=== PATIENT | male | born 1950 | race Caucasian/White ===

== ENCOUNTER 2020-09-17 14:01 | Outpatient (CLI) | payer MEDICARE, SELFPAY ==
--- NOTE | ~2020-09-17 | XR_ITS ---
XR lumbar spine 2-3V DATE: 09/17/2020 14:22 INDICATION: Chronic low back pain, generalized weakness. TECHNIQUE: AP, lateral, coned lateral lumbosacral views COMPARISON: None FINDINGS: Status post posterior surgical fusion at L4-5. Diffuse idiopathic skeletal hyperostosis at the thoracolumbar spine. Degenerative disc disease throughout the lumbar spine. There is mild dextroscoliosis. No fracture or bone destruction. The lumbar pedicles are intact. No spondylolisthesis. The sacroiliac joints are unremarkable. IMPRESSION: Diffuse idiopathic skeletal hyperostosis Degenerative disc disease of lumbar spine Status post L4-5 posterior surgical fusion Reviewed, dictated and finalized at location A.
== END 2020-09-17 14:02 | disposition home or self-care (01) ==
LOC: CHSIMG 14:05
PROVIDERS: PCP Internal Medicine; Visit Provider Internal Medicine
DX: M54.9 Dorsalgia, unspecified (principal)
CPT/HCPCS: 72100

== ENCOUNTER 2020-09-19 13:06 | Outpatient (RCR) | payer MEDICARE, SELFPAY ==
--- NOTE | 2020-09-19 15:10 | PTOPEVAL ---
Thank you for referring Sree Navarrete to [facility].? The patient is scheduled to be seen for therapy? ____x/week for ___ weeks. Please review, sign, date and return this plan of care KATHERINE. I agree with and certify that the following plan of care is medically necessary. Referring Physician Date Admitting Provider: Attending Provider: Robbie Davis MD Referring Provider: *PT Outpatient Evaluation Start: 09/19/20 08:29 Freq: Status: Active Protocol: Document 09/19/20 13:01 ACR (Rec: 09/19/20 15:10 ACR [id number]) Therapy Assessment Status Assessment Status Assessment Status Evaluation Evaluation Information Problem Diagnosis Low back pain Onset 09/04/20 Subjective Information Patient states that when he Query Text:As Reported By Patient/ was out in the [employer] for 5 days and was doing fine, but went to put his socks on and felt a shock in his back. He then sat in his car for [address] home and then he could not walk for 2 days. He went to the MD and got a steriod shot then was put on a steriod pack and didn't feel much better. He is now on his second steriod pack. He states he does not have any radicular pain. The patient states he is very active with hunting, fishing, travelling. Patient states he is having difficulty walking/standing for prolonged periods of time, steps (marking time on the stairs), leaning forward to clean himself, getting in and out of the car, and the pain wakes him up at night. He also has difficulty lifting objects. He states the pain is predominantly on the L side. He states he is icing ang laying on his back which relieves the pain. 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
--- NOTE | 2020-10-19 16:55 | PTOPEVAL ---
Thank you for referring Sree Navarrete to [facility].? The patient is scheduled to be seen for therapy? ____x/week for ___ weeks. Please review, sign, date and return this plan of care KATHERINE. I agree with and certify that the following plan of care is medically necessary. Referring Physician Date Admitting Provider: Attending Provider: Robbie Davis MD Referring Provider: *PT Outpatient Evaluation Start: 09/19/20 08:29 Freq: Status: Active Protocol: Document 10/19/20 16:24 ACR (Rec: 10/19/20 16:54 ACR [id number]) Therapy Assessment Status Assessment Status Assessment Status Discharge Evaluation Information Problem Diagnosis low back pain Onset 09/04/20 Subjective Information Patient states that he is Query Text:As Reported By Patient/ feeling great since beginning Family therapy. He states that stairs have become very easy, he is able to stand for long periods of time, he can lift objects, but is cautious about what he lifts. He states that he is able to get in and out of the car with little to no pain. He performs his exercises 2 times a day and states that he never misses the morning stretches because they help him start his day. Pain Assessment Timing of Pain Assessment Timing of Pain Assessment Assessment Pain Scale Pain Scale Used Numeric (1 - 10) Self Report Pain Assessment Lower Back Reported Pain Level 1 Greatest Pain Intensity 3 Pain Score Pain Score 1: Self Report Interventions Used Interventions Used By Clinicians Activity or ADL's,Electrical Stimulation,Exercise,Heat Cervical and Lumbar ROM Lumbar ROM Lumbar ROM 75% of Normal Lower Extremity Muscle Strength Testing General Lower Extremity Strength Gross Lower Extremity Strength Sahrman level: 1 B Hip Strength Bilateral Hip Flexion Strength 5 Normal Muscle Length Testing Muscle Length Testing Piriformis w/Hip Flexion <90 Degrees (R) Mild Tightness,(L) Mild Tightness Left Hamstring Length 30 Query Text:(90 - 90 Position) Right Hamstring Length 20 Query Text:(90 - 90 Position) General Exercise General Exercises Exercise Description - hamstring stretch x 5 Query Text:Record Sets, Reps, minutes B Resistance, and Position - piriformis stretch x 5 minutes
== END 2020-10-19 17:01 | disposition home or self-care (01) ==
LOC: CHSPT 13:06
PROVIDERS: PCP Internal Medicine; Visit Provider Internal Medicine
DX: M54.5 Low back pain (principal)
CPT/HCPCS: 97014; 97110; 97161; G0283

== ENCOUNTER 2021-06-30 16:07 | Emergency (ER) | payer MEDICARE, SELFPAY ==
--- NOTE | 2021-06-30 16:20 | ED.WOUNDLAC ---
HPI - Wound/Laceration General Chief Complaint: Wound/Laceration Stated Complaint: cut left hand Time Seen by Provider: 06/30/21 16:20 Source: patient Mode of arrival: ambulatory Limitations: no limitations History of Present Illness HPI narrative: 71-year-old man comes in today complaining of laceration of his left thumb. Patient states that he was cutting carpet with a razor knife and slipped cutting his thumb. He denies any numbness. He takes a blood thinner. He is unsure when he had his last tetanus shot. Onset (ago): hour(s) (1) Extremity Location: Left: hand (thumb) Place: home Context: accidental Associated symptoms: pain Treatments prior to arrival: bandage Related Data Home Medications Medication Instructions Recorded Confirmed celecoxib 200 mg PO DAILY 06/30/21 06/30/21 finasteride 5 mg PO DAILY 06/30/21 06/30/21 flecainide 100 mg PO Q12H 06/30/21 06/30/21 multivitamin 1 tablet PO DAILY 06/30/21 06/30/21 pantoprazole 40 mg PO QAM 06/30/21 06/30/21 rivaroxaban [Xarelto] 20 mg PO DAILY 06/30/21 06/30/21 simvastatin 10 mg PO DAILY 06/30/21 06/30/21 telmisartan 40 mg PO DAILY 06/30/21 06/30/21 terazosin 5 mg PO DAILY 06/30/21 06/30/21 Allergies Allergy/AdvReac Type Severity Reaction Status Date / Time No Known Allergies Allergy Unverified 06/30/21 16:20 Review of Systems Review of Systems: All systems reviewed & are unremarkable except as noted in HPI and below Musculoskeletal: Musculoskeletal: Denies arthralgias and Denies joint swelling Integumentary/Breasts: Skin/Breast: Denies pruritus, Denies erythema and Denies rash Hematologic/Lymphatic: Hematologic/Lymphatic: Reports easy bleeding and Reports easy bruising Allergic/Immunologic: Allergic/Immunologic: Denies lip swelling and Denies throat swelling PMFSH Past Medical History Medical History Arrhythmia Dyslipidemia Hypertension Surgical History Surgical History H/O cardiac catheterization H/O rotator cuff surgery History of colon resection Hx of knee surgery Previous back surgery Family History Family History (Updated 01/07/11 @ 15:51 by DOCTOR UNKNOWN) Other Cerebrovascular accident Family history of cardiovascular disease Hypertension Social History Social History (Updated 06/30/21 @ 17:04 by Christopher Colmenares MD) Alcohol intake: current Substance use type: does not use Living arrangements: with family Exam Const: General: healthy appearing and alert Orientation/consciousness: patient oriented x3 Limitations: no limitations Other: mild acute distress Skin: General skin exam: normal color, no jaundice and no pallor Rashes: no rashes Other: 3 cm laceration on the radial aspect of the left thumb distal to the IP. Nail bed is intact Neuro: General: patient oriented x3, moves all extremities, no focal motor deficits and CN's II-XI intact bilaterally Speech: normal speech Gait exam (Neuro): Normal gait present Course Vital Signs Vital signs: Vital Signs Temperature 36.7 C 06/30/21 16:33 Pulse Rate 72 06/30/21 16:33 Respiratory Rate 20 06/30/21 16:33 Blood Pressure 131/93 H 06/30/21 16:33 Pulse Oximetry 95 06/30/21 16:33 Temperature 36.7 C 06/30/21 16:33 Pulse Rate 72 06/30/21 16:33 Respiratory Rate 20 06/30/21 16:33 Blood Pressure 131/93 H 06/30/21 16:33 Pulse Oximetry 95 06/30/21 16:33 Procedures Laceration Laceration 1: Date: 06/30/21 Time: 16:40 Site: hand Side (If applicable): left Size (cm): 3 Description: linear Depth: simple, single layer Amount of anesthesia used (mL): 3 Pre-repair: wound explored and irrigated extensively ====== Skin Level ====== Skin layer closed with: nylon and steri strips (4) Size (cm): 5-0 Number of sutures: 7 Technique: si
[2021-06-30 16:33] VITALS: BP 131/93; PULSE 72; RESP 20; TEMP 36.7; O2SAT 95
[2021-06-30 17:18] VITALS: BP 114/98; PULSE 82; RESP 20; TEMP 36.8; O2SAT 98
== END 2021-06-30 17:19 | disposition home or self-care (01) ==
PROVIDERS: Emergency Provider Emergency Medicine; PCP Internal Medicine
DX: S61.012A Laceration without foreign body of left thumb without damage to nail, initial encounter (principal); W26.0XXA Contact with knife, initial encounter
CPT/HCPCS: 12002; 99283

== ENCOUNTER 2021-11-20 08:07 | Outpatient (CLI) | payer MEDICARE, SELFPAY ==
[2021-11-20 09:17] LABS: SARS-CoV-2 RNA PCR Negative (Negative)
== END 2021-11-20 08:08 | disposition home or self-care (01) ==
LOC: CHSLAB 08:08
PROVIDERS: PCP Internal Medicine; Visit Provider Internal Medicine
DX: Z20.822 Contact with and (suspected) exposure to COVID-19 (principal)
CPT/HCPCS: C9803; U0003; U0005

== ENCOUNTER 2022-06-12 00:28 | Day surgery (SDC) | payer MEDICARE, SELFPAY ==
[2022-06-03 15:41] VITALS: BMI 41.3
[2022-06-12 09:10] VITALS: BP 159/65; PULSE 50; RESP 19; TEMP 36.1; O2SAT 97
[2022-06-12] MEDS: LACTATED RINGERS 1,000 ML 150 ML IV CONT (09:22)
--- NOTE | 2022-06-12 09:37 | PM.HPGS ---
History of Present Illness History of Present Illness Consent: Risks, benefits, and alternatives have been discussed and questions answered. Patient agrees to proceed with procedure. Chief complaint: Hx of colon polyps Narrative: Sree Navarrete is a 72 year old male Presents for colonoscopy. Patient has a history of colon polyps in the past. When he was younger he required surgical resection because a large polyps. 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 Patient returns today for follow-up examination. Patient's current weight appetite and bowel movements are normal. He denies abdominal pain. He has had no bleeding. Family history is noncontributory. Review of Systems Review of Systems: Review of systems noncontributory. [facility] Past Medical History Medical History Arrhythmia Dyslipidemia Hypertension Surgical History Surgical History H/O cardiac catheterization H/O rotator cuff surgery History of colon resection Hx of knee surgery Previous back surgery Family History Family History (Updated 01/07/11 @ 15:51 by DOCTOR UNKNOWN) Other Cerebrovascular accident Family history of cardiovascular disease Hypertension Social History Social History (Updated 06/30/21 @ 17:04 by Christopher Colmenares MD) Smoking packs per day: 1.5 Smoking cigarettes per day: 30.0 Years smoked: 15 Smoking pack-years: 22.50 Smoking status: Former smoker Tobacco type: cigarettes Alcohol intake: current Drinks per week: 2 Substance use: never Substance use type: does not use Living arrangements: with family Spiritual care concerns: No Meds Home Medications and Allergies Home Medications Medication Instructions Recorded Confirmed Type celecoxib 200 mg capsule 200 mg PO DAILY 06/30/21 06/03/22 History finasteride 5 mg tablet 5 mg PO DAILY 06/30/21 06/03/22 History flecainide 100 mg tablet 100 mg PO Q12H 06/30/21 06/03/22 History multivitamin 1 tablet PO DAILY 06/30/21 06/03/22 History pantoprazole 40 mg tablet,delayed 40 mg PO QAM 06/30/21 06/03/22 History release rivaroxaban 20 mg tablet (Xarelto) 20 mg PO DAILY 06/30/21 06/03/22 History simvastatin 10 mg tablet 10 mg PO DAILY 06/30/21 06/03/22 History telmisartan 40 mg tablet 40 mg PO DAILY 06/30/21 06/03/22 History terazosin 5 mg capsule 5 mg PO DAILY 06/30/21 06/03/22 History sodium,potassium,mag sulfates 17.5 See Rx Instructions PO .COMPLEX 05/01/22 06/03/22 Rx gram-3.13 gram-1.6 gram oral soln #354 mL (Suprep Bowel Prep Kit) ferrous gluconate 324 mg (37.5 mg 324 mg PO BID 06/03/22 06/03/22 History iron) tablet metoprolol succinate 25 mg 20 mg PO DAILY 06/03/22 06/03/22 History tablet,extended release 24 hr Allergies Allergy/AdvReac Type Severity Reaction Status Date / Time No Known Allergies Allergy Unverified 06/12/22 09:08 Vital Signs Vital Signs - 24 hr 06/12/22 09:10 Temperature 96.9 F L Pulse Rate 50 L Respiratory Rate 19 Blood Pressure 159/65 H Pulse Oximetry 97 Oxygen Delivery Room Air Exam Narrative: Physical exam reveals patient to be alert. Vital signs stable. HEENT exam is unremarkable. Patient is anicteric. Lungs are clear to auscultation and percussion. Heart is without murmur or extra sounds. Abdomen bowel sounds are present soft nontender with no organomegaly. Digital external rectal exam is normal. Assessment and Plan Assessment and plan (1) History of colon polyps: Code(s): Z86.010 - Personal history of colonic polyps Status: Acute Assessment and Plan: Patient has a history of colon polyps. Most recently 2014. He has a prior colon resection while he was in his 30s because of colon polyps as well. Plan for surveillance colonoscopy now and at least at every 5 year intervals in the future. Further dameon
--- NOTE | 2022-06-12 09:48 | WPDANESEPPF ---
Anes - Initial Pre Proc Eval Procedure: Operation Date: 06/12/22 10:30 Proposed Procedures p Screening Colonoscopy - Sree Velásquez MD Date/Time: 06/12/22 09:48 Surgeon: Sree Velásquez MD Pre Op Diagnosis: Hx of colon polyps Patient Data Age: 72 Gender: M Height: 1.8 m Weight: 134.1 kg Last Vital Signs Temp 96.9 F L 06/12/22 09:10 Pulse 50 L 06/12/22 09:10 Resp 19 06/12/22 09:10 BP 159/65 H 06/12/22 09:10 Pulse Ox 97 06/12/22 09:10 O2 Del Method Room Air 06/12/22 09:10 Allergies Allergy/AdvReac Type Severity Reaction Status Date / Time No Known Allergies Allergy Unverified 06/12/22 09:08 Home Medications Medication Instructions Recorded Confirmed Type celecoxib 200 mg capsule 200 mg PO DAILY 06/30/21 06/03/22 History finasteride 5 mg tablet 5 mg PO DAILY 06/30/21 06/03/22 History flecainide 100 mg tablet 100 mg PO Q12H 06/30/21 06/03/22 History multivitamin 1 tablet PO DAILY 06/30/21 06/03/22 History pantoprazole 40 mg tablet,delayed 40 mg PO QAM 06/30/21 06/03/22 History release rivaroxaban 20 mg tablet (Xarelto) 20 mg PO DAILY 06/30/21 06/03/22 History simvastatin 10 mg tablet 10 mg PO DAILY 06/30/21 06/03/22 History telmisartan 40 mg tablet 40 mg PO DAILY 06/30/21 06/03/22 History terazosin 5 mg capsule 5 mg PO DAILY 06/30/21 06/03/22 History sodium,potassium,mag sulfates 17.5 See Rx Instructions PO .COMPLEX 05/01/22 06/03/22 Rx gram-3.13 gram-1.6 gram oral soln #354 mL (Suprep Bowel Prep Kit) ferrous gluconate 324 mg (37.5 mg 324 mg PO BID 06/03/22 06/03/22 History iron) tablet metoprolol succinate 25 mg 20 mg PO DAILY 06/03/22 06/03/22 History tablet,extended release 24 hr Patient hx anesthesia problems: none Family hx anesthesia problems: none Results Review: All pre-operative results and documents have been reviewed as part of the pre-operative evaluation. PMFSH Past Medical History Medical History Arrhythmia Dyslipidemia Hypertension Surgical History Surgical History H/O cardiac catheterization H/O rotator cuff surgery History of colon resection Hx of knee surgery Previous back surgery Family History Family History (Updated 01/07/11 @ 15:51 by DOCTOR UNKNOWN) Other Cerebrovascular accident Family history of cardiovascular disease Hypertension Social History Social History (Updated 06/30/21 @ 17:04 by Christopher Colmenares MD) Smoking packs per day: 1.5 Smoking cigarettes per day: 30.0 Years smoked: 15 Smoking pack-years: 22.50 Smoking status: Former smoker Tobacco type: cigarettes Alcohol intake: current Drinks per week: 2 Substance use: never Substance use type: does not use Living arrangements: with family Spiritual care concerns: No Anes - Eval Final PreProcedure Day of Procedure 06/12/22 09:48 Patient weight: morbidly obese Heart: regular rate and rhythm Lungs: clear to auscultation Airway: Mallampati scale class III Neurological: alert and oriented Last oral intake: >/= 8 hours ASA classification: III Emergent: no Anesthetic plan: proceed Anesthesia type and monitoring: general GIVS and standard monitoring Results Review: All pre-operative results and documents have been reviewed as part of the pre-operative evaluation. Informed Consent: The patient's anesthetic plan and its attendant risks and benefits were discussed with the patient/family/POA. Questions were solicited and answers provided to the satisfaction of the patient/family/POA.
[2022-06-12] MEDS: SIMETHICONE ORAL SUSPENSION 20 MG/0.3 ML 30 ML BOTTLE 0.6 ML IRRIGATION (10:39)
[2022-06-12 10:52] VITALS: BP 133/48; PULSE 48; RESP 21; O2SAT 97
[2022-06-12 11:02] VITALS: BP 142/71; PULSE 45; RESP 19; O2SAT 97
[2022-06-12 11:12] VITALS: BP 145/60; PULSE 45; RESP 20; O2SAT 96
== END 2022-06-12 11:18 | disposition home or self-care (01) ==
PROVIDERS: PCP Internal Medicine; Visit Provider Internal Medicine Gastroenterology
PROC: 0DJD8ZZ Inspection of Lower Intestinal Tract, Via Natural or Artificial Opening Endoscopic (ICD-10-PCS; CPT 45378; principal; 2022-06-12 10:30)
DX: Z12.11 Encounter for screening for malignant neoplasm of colon (principal); D12.5 Benign neoplasm of sigmoid colon; K57.30 Diverticulosis of large intestine without perforation or abscess without bleeding; E78.5 Hyperlipidemia, unspecified; I10 Essential (primary) hypertension; Z90.49 Acquired absence of other specified parts of digestive tract; Z87.891 Personal history of nicotine dependence
CPT/HCPCS: 45385; 88305; J2704; J7120

== ENCOUNTER 2022-09-15 13:48 | Outpatient (CLI) | payer MEDICARE, SELFPAY ==
--- NOTE | ~2022-09-15 | XR_ITS ---
EXAMINATION: XR chest 2V Exam Date/Time: 09/15/2022 14:00 CDT HISTORY: COUGH,URI, X2WK Comparison: 04/25/2019. RESULT: Lines, tubes, and devices: None. Lungs and pleura: Senescent change. Streaky bibasilar opacities likely represent scar/atelectasis. Cardiomediastinal silhouette: Stable. Other: No acute osseous or upper abdominal finding. IMPRESSION: No acute cardiopulmonary process. Reviewed, dictated and finalized at location K.
== END 2022-09-15 13:49 | disposition home or self-care (01) ==
LOC: CHSIMG 13:49
PROVIDERS: PCP Internal Medicine; Visit Provider Internal Medicine
DX: R05.9 Cough, unspecified (principal)
CPT/HCPCS: 71046

== ENCOUNTER 2023-10-05 10:46 | Outpatient (CLI) | payer MEDICARE, SELFPAY ==
[2023-10-05 11:12] LABS: Basophils Absolute Auto 0.02 K/mm3 (0.00-0.10); Basophils Percent Auto 0.4 % (0.0-1.0); Eosinophils Absolute Auto 0.09 K/mm3 (0.02-0.50); Eosinophils Percent Auto 1.6 % (1.0-6.0); Hematocrit 37.9 % (37.0-46.0); Hemoglobin 12.7 g/dL (12.4-15.3); Immature Granulocyte Absolute 0.03 K/mm3 (0.00-0.00); Immature Granulocyte Percent A 0.5 % (0.0-0.0); Lymphocytes Absolute Auto 1.73 K/mm3 (1.10-4.50); Lymphocytes Percent Auto 31.4 % (18.0-42.0); Mean Corpuscular HGB Conc 33.5 g/dL (32-36); Mean Corpuscular Hemoglobin 30.8 pg (27.0-31.0); Mean Platelet Volume 9.8 fl (8.7-11.0); Monocytes Absolute Auto 0.48 K/mm3 (0.10-0.90); Monocytes Percent Auto 8.7 % (2.0-11.0); Neutrophils Absolute Auto 3.16 K/mm3 (1.70-7.20); Neutrophils Percent Auto 57.4 % (50.0-70.0); Platelet Count Result 203 K/mm3 (150-420); Red Blood Count 4.12 M/mm3 (4.70-6.10); White Blood Count 5.5 K/mm3 (4.8-10.8)
[2023-10-05 11:30] LABS: Prothrombin Time 10.8 Seconds (9.50-12.1)
[2023-10-05 11:45] LABS: Anion Gap 13 mmol/L (4-12); Blood Urea Nitrogen 14 mg/dL (7-18); Calcium 8.9 mg/dL (8.5-10.1); Carbon Dioxide 24 mmol/L (21-32); Chloride 105 mmol/L (98-108); Estimated Glomerular Filt Rate > 60; Glucose 90 mg/dL (70-99); Magnesium 1.6 mg/dL (1.8-2.4); Osmolality Calculated 294 mOsm/kg (285-295); Potassium 4.2 mmol/L (3.5-5.1); Sodium 142 mmol/L (136-145)
== END 2023-10-05 10:47 | disposition home or self-care (01) ==
PROVIDERS: PCP Internal Medicine; Visit Provider Specialist
DX: R06.09 Other forms of dyspnea (principal); R07.9 Chest pain, unspecified; I25.119 Atherosclerotic heart disease of native coronary artery with unspecified angina pectoris; R94.39 Abnormal result of other cardiovascular function study
CPT/HCPCS: 36415; 80048; 83735; 85025; 85610

== ENCOUNTER 2024-03-03 13:52 | Outpatient (CLI) | payer MEDICARE, SELFPAY ==
--- NOTE | ~2024-03-03 | XR_ITS ---
EXAMINATION: XR chest 2V 03/03/2024 14:17 INDICATION: Cough for one month PROCEDURE: 2 view chest COMPARISON: 09/15/2022 FINDINGS: The lungs are clear. The cardiomediastinal silhouette is within normal limits. There are no pleural effusions. There is no pneumothorax suspected. IMPRESSION: 1: NO ACUTE CARDIOPULMONARY DISEASE. Reviewed, dictated and finalized at location B.
[2024-03-03 14:05] LABS: Basophils Absolute Auto 0.03 K/mm3 (0.00-0.10); Basophils Percent Auto 0.5 % (0.0-1.0); Eosinophils Absolute Auto 0.09 K/mm3 (0.02-0.50); Eosinophils Percent Auto 1.4 % (1.0-6.0); Hematocrit 39.7 % (37.0-46.0); Hemoglobin 13.3 g/dL (12.4-15.3); Immature Granulocyte Absolute 0.05 K/mm3 (0.00-0.00); Immature Granulocyte Percent A 0.8 % (0.0-0.0); Lymphocytes Absolute Auto 1.86 K/mm3 (1.10-4.50); Lymphocytes Percent Auto 29.3 % (18.0-42.0); Mean Corpuscular HGB Conc 33.5 g/dL (32-36); Mean Corpuscular Hemoglobin 31.3 pg (27.0-31.0); Mean Corpuscular Volume 93.4 fL (78.0-102.0); Mean Platelet Volume 9.7 fl (8.7-11.0); Monocytes Absolute Auto 0.58 K/mm3 (0.10-0.90); Monocytes Percent Auto 9.1 % (2.0-11.0); Neutrophils Absolute Auto 3.73 K/mm3 (1.70-7.20); Neutrophils Percent Auto 58.9 % (50.0-70.0); Platelet Count Result 208 K/mm3 (150-420); Red Blood Count 4.25 M/mm3 (4.70-6.10); Red Cell Distribution Width 12.3 % (11.6-14.4); White Blood Count 6.3 K/mm3 (4.8-10.8)
[2024-03-03 15:10] LABS: Alanine Aminotransferase 34 U/L (16-63); Albumin Level 3.7 g/dL (3.4-5.0); Anion Gap 8 mmol/L (4-12); Aspartate Amino Transferase 22 U/L (15-37); Bilirubin,Total 0.4 mg/dL (0.00-1.00); Blood Urea Nitrogen 19 mg/dL (7-18); Calcium 8.6 mg/dL (8.5-10.1); Carbon Dioxide 30 mmol/L (21-32); Chloride 102 mmol/L (98-108); Estimated Glomerular Filt Rate > 60; Glucose 94 mg/dL (70-99); Osmolality Calculated 292 mOsm/kg (285-295); Potassium 4.4 mmol/L (3.5-5.1); Sodium 140 mmol/L (136-145); Total Protein 6.2 g/dL (6.4-8.2)
[2024-03-03 15:11] LABS: Alkaline Phosphatase 93 U/L (46-116)
[2024-03-03 15:12] LABS: CRP < 0.5 mg/dL (0.0-0.9)
== END 2024-03-03 13:53 | disposition home or self-care (01) ==
LOC: CHSLAB 13:54
PROVIDERS: PCP Internal Medicine; Visit Provider Internal Medicine
DX: R05.9 Cough, unspecified (principal)
CPT/HCPCS: 36415; 71046; 80053; 85025; 86140

== ENCOUNTER 2024-11-12 07:03 | Outpatient (CLI) | payer MEDICARE, SELFPAY ==
--- OUTSIDE RECORDS SUMMARY | 2024-11-12 07:10 | XMS_ITS | Encounter Summary ---
Author Organization [facility] Health Address [address] [place] [address] Care Team Providers Care Associate Dean Of Women Name Role Phone David Bergman MD Unavailable [phone] Alona Miles MD Unavailable [phone] Srinivasa Wilburn DO Unavailable [phone] Robbie Davis MD Primary Care Provider [phone] Encounter Details Date Type Department Care Team (Late st Contact Info) Description 05/01/2016 [facility] Outpatient Visit [facility] Orthopedics - Radiology [address] [address] Srinivasa Wilburn, DO [address] [place] [address] Social History Tobacco Use Types Packs/Day Years Used Date Smoking Tobacco: Former Cigarettes 2 15 0 07/06/1995 - 07/06/2010 Smokeless Tobacco: Former Chew Alcohol Use Standard Drinks/Week Comments Yes 2.5 (1 standard drink = 0.6 oz p ure alcohol) Sex and Gender Information Value Date Recorded Sex Assigned at Not on file Legal Sex Male 5:24 AM [employer] Gender Identity Not on file Sexual Orientation Not on file documented as of this encounter Functional Status * Is person deaf or have serious hearing difficulty? Answer Date of Assessment Author No 08/25/2015 9:19 AM Ele Kaba ma RN * Is person blind or have serious difficulty seeing? Answer Date of Assessment Author No 08/25/2015 9:19 AM Ele Kaba ma, RN * Does person have serious difficulty walking/climbing stairs? Answer Date of Assessment Author No 08/25/2015 9:19 AM Ele Kaba ma, RN * Does person have difficulty dressing/bathing? Answer Date of Assessment Author No 08/25/2015 9:19 AM Ele Kaba ma, RN * Does person have difficulty doing errands alone? Answer Date of Assessment Author No 08/25/2015 9:19 AM Anna Kaba RN documented as of this encounter Mental Status * Does person have difficulty concentrating/remembering/making decisions? Answer Entry Date Author No 08/25/2015 9:19 AM Ele Kaba ma, RN documented in this encounter Plan of Treatment Not on file documented as of this encounter Visit Diagnoses Not on filedocumented in this encounter Care Teams Associate Dean Of Women Relationship Specialty Start Date End Date Robbie Davis MD [address], [place] [id number] PCP - General Internal Medicine 04/07/24 [place] [address] [address] [facility] [address] [id number] Orthopedic Surgery 01/10/13 [place] [id number] [facility] [address] [id number] Orthopedic Surgery 08/21/14 [place] [id number] [address] [address] Orthopedic Surgery 01/03/16 documented as of this encounter
--- OUTSIDE RECORDS SUMMARY | 2024-11-12 07:10 | XMS_ITS | Clinical Summary ---
Author Organization [facility] Address [address] [place] [address] Care Team Providers Care District Court Justice Name Role Phone Robbie Davis MD Primary Care Provider [phone] Verena Lara ANP-BC Unavailable [phone] Torres Winter MD Unavailable [phone] Charity Banda PA-C Unavailable [phone] Carolina Herzog MD Unavailable Medications Multiple Vitamin (MULTIVITAMIN) capsule Take 1 tablet by mouth daily. 3 Active terazosin 5 MG capsule Take 1 capsule (5 mg total) by mouth nightly at bedtime. Active finasteride 5 MG tablet Take 1 tablet (5 mg total) by mouth daily. Active pantoprazole EC 40 MG tablet Take 500 mg by mouth daily. 1 tablet daily 9 Active ferrous gluconate 324 (38 FE) MG tablet Take 2 tablets (648 mg total) by mouth daily. Active rivaroxaban 20 MG Tab tablet Take 1 tablet (20 mg total) by mouth daily with supper. Take with food 90 tablet 1 0 Active celecoxib (CELEBREX) 200 MG capsule Take 1 capsule (200 mg total) by mouth daily. 4 Active simvastatin (ZOCOR) 10 MG tablet Take 1 tablet (10 mg total) by mouth nightly at bedtime. 90 tablet 3 5 Active Telmisartan-amLOD IPine 80-10 MG Tab Take 1 tablet by mouth daily. 90 tablet 3 5 Active metoprolol succinate ER (TOPROL-XL) 25 MG 24 hr tabletIndications :Paroxysmal atrial fibrillation (CMS/HCC HHS/HCC) TAKE A HALF TABLET BY MOUTH DAILY 45 tablet 1 5 Active Active Problems Problem Noted Date Diagnosed Date Mild CAD 09/08/2022 S/P ablation of atrial flutter 10/29/2021 Enlarged prostate without lo wer urinary tract symptoms (luts) 02/15/2018 Overview (02/15/2019): Overview: Enlarged prostate - (Added by TW Conv) Spondylolisthesis of lumbar region 02/25/2017 Spinal stenosis of lumbar region 08/06/2016 Pes anserinus bursitis of left knee 05/05/2016 History of total knee replacement 07/10/2015 Fatigue 03/29/2014 Hypersomnia 03/29/2014 Heart disease 01/10/2013 Osteoarthrosis involving lower leg 01/10/2013 Overview (02/15/2019): Overview: 2015 IMO Updt Overview: 2015 IMO Updt Obstructive sleep apnea PAC (premature atrial contraction) Essential (primary) hypertension Overview (08/25/2016): Overview: Hyperlipidemia Colon cancer (CMS/HCC HHS/HCC) Cardiomyopathy (CMS/HCC HHS/HCC) Atypical atrial flutter (CMS/HCC HHS/HCC) Arthritis Gout Paroxysmal atrial fibrillation (CMS/HCC HHS/HCC) Resolved Problems Problem Noted Date Diagnosed Date Resolved Date CPAP use counseling 04/04/2015 03/16/20 20 Encounter for preventive health examination 09/07/2012 03/16/2020 Encounters Date Type Department Care Team Description 10/25/2024 1:30 PM CDT [facility] [address] [place] [address] Torres Winter MD 10/25/2024 Prep [place] [address] Torres Winter MD 10/25/2024 Telephone [facility] [address] [place] [address] Torres Winter MD Schedule Procedure 10/25/2024 Travel 10/22/2024 Orders Only [facility] [address] [place] [address] Torres Winter MD 09/28/2024 Telephone [facility] [address] [place] [address] Torres Winter MD Reschedule; Returned Call 09/19/2024 Telephone [facility] [address] [place] [address] Carolina Herzog MD Reschedule 09/16/2024 Telephone [facility] [address] [place] [address] Torres Winter MD Results 09/16/2024 Telephone [facility] [address] [place] [address] Torres Winter MD Concerns; Question 09/08/2024 Telephone [facility] [address] [place] [address] Torres Winter MD Question 08/22/2024 Telephone [facility] [address] [place] [address] Carolina Herzog MD Information (BP log) from Last 3 Months Family History Medical History Relation Comments Stroke Father NE Maternal Grandfather Atrial Fibrillation S/P Pacemaker Mother Atrial fibrillation Sister Coronary artery disease Neg Hx No brenna ture coronary artery disease. Relation Status Comments Father (Age 39) cerebral hemor rhage. Maternal Grandfather (Age 65) of m yocardial infarction at age 65. Mother Alive Atrial fibrillat ion s/p pacemaker Sister Alive Social History Tobacco Use Types Packs/Day Years Used Date Smoking Tobacco: Former Smokeless Tobacco: Former Chew Quit: 08/25/2001 Tobacco Cessation:Counseling Given: Not Answered Comments:quit in 2011 - smoked off and on for 42 years, 1/2 PPD on average Alcohol Use Standard Drinks/Week Comments Yes 0 (1 standard drink = 0.6 oz pur e alcohol) Occasionally during weekends. 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 Not on file Not on file No t on file Not on file Not on file Not on file Not on file Last Filed Vital Signs Vital Sign Reading Time Taken Comments Blood Pressure 150/80 10/25/2024 1:47 PM CDT Pulse 53 10/25/2024 1:47 PM CDT Temperature 36.3 C (97.4 F) 07/16/2024 3:53 PM RAILWAY PATROL OFFICER Respiratory Rate 18 10/25/2024 1:47 PM CDT Oxygen Saturation 95% 07/20/2024 12:38 PM RAILWAY PATROL OFFICER Inhaled Oxygen Concentration - - Weight 138.8 kg (306 lb) 10/25/2024 1:47 PM CDT Height 180.3 cm (5' 11 ) 10/25/2024 1:47 PM CDT Body Mass Index 42.68 10/25/2024 1:47 PM CDT Plan of Treatment Upcoming Encounters Date Type Department Care Team (Late st Contact Info) Description 11/24/2024 7:00 AM CDT Appointment [facility] [employer] [address] [place] [address] Torres Winter MD [address] [place], [place] [address] 01/02/2025 10:00 AM CDT Office Visit [facility] [place] [address] Carolina Herzog MD [address] [place] [address] 03/01/2025 1:15 PM CDT Office Visit [facility] [place] [address] Torres Winter MD [address] [place] [address] Health Maintenance Due Date Last Done Comments Hepatitis C 1967 AAA SCREENING 2014 Annual Medicare Wellness Visit 2014 ASCVD LDL 08/25/2017 08/25/2016, 01/04, 07/30/2015 Zoster Vaccines (2 of 2) 04/28/2019 03/03/2019 Pneumococcal Vaccine: 50+ Years (3 of 3 - PCV20 or PCV21) 08/21/2021 08/21/2016, 06/02/2012, 07/06/2010 COVID-19 Vaccine ( season) 2024 04/01/2023, 03/13/2022, 10/08/2021, Additional history exists DTaP, Tdap and Td Vaccines (3 - Td or Tdap) 02/11/2033 02/11/2023, 07/22/2012 RSV Immunization or 60+ Years Completed 03/14/2023 Meningococcal B Vaccine Aged Out No l onger eligible based on patient's age to complete this topic Meningococcal Vaccine Aged Out No eris mitchell eligible based on patient's age to complete this topic RSV Immunizations Under 20 Months Aged Out No longer eligible based on patient's age to complete this topic Procedures Procedure Name Priority Date/Time Associated Diagnosis Comments ELECTROCARDIOGRAM (NON MIDMARK ACQUIRED) Routine 10/25/2024 1:54 PM CDT Paroxysmal atrial fibrillation (CMS/HCC HHS/HCC) EVENT RECORDER (ECG) UP TO 30 DAYS COMPLETE Routine 09/14/2024 3:09 PM CDT Atypical atrial flutter (CMS/HCC HHS/HCC) Paroxysmal atrial fibrillation (CMS/HCC HHS/HCC) LIPID PANEL Routine 08/25/2016 11:42 AM RAILWAY PATROL OFFICER Mixed hyperlipidemia from Last 3 Months or Most Recently Relevant to Health Maintenance Results * ELECTROCARDIOGRAM (10/25/2024 1:54 PM CDT) 10/25/2024 1:54 PM CDT Narrative [facility] - 10/26/2024 6:21 AM CDT [facility] [address] [place] [address] Test Date: 2024-10-25 Pat Name: [facility] Department: 105 Room: Gender: Male Activity Aid: wil : 1950 Requested By: TORRES WINTER Order Number: [id number] Shekhar MD: Torres Winter Measurements Intervals [place] Rate: 53 P: 55 WY: 167 QRS: -26 QRSD: 152 T: 75 QT: 440 QTc: 414 Interpretive Statements SINUS BRADYCARDIA INTRAVENTRICULAR CONDUCTION DELAY Procedure Note Torres Winter MD - 10/26/[address] [address] Test Date: 2024-10-25 Pat Name: [facility] Department: 105 Room: Gender: Male Activity Aid: wil : 1950 Requested By: TORRES WINTER Order Number: [id number] Shekhar MD: Torres Winter Measurements Intervals [place] Rate: 53 P: 55 WY: 167 QRS: -26 QRSD: 152 T: 75 QT: 440 QTc: 414 Interpretive Statements SINUS BRADYCARDIA INTRAVENTRICULAR CONDUCTION DELAY us Torres Winter MD PROCEDURES-ORDERABLE NO C HARGE Final Result [facility] CLINIC - OUTPATIENT EVENT RECORDER (ECG) UP TO 30 DAYS COMPLETE (Holter) (09/14/2024 3:09 PM CDT) Narrative [facility] - 09/14/2024 3:09 PM CDT DATE OF MONITORIN08/10/2024-09/08/2024 INDICATION: Atypical atrial flutter FINDINGS: Patient underwent continuous cardiac monitoring using the BodyGuardian device for a total of 30 days. Only 88% of the monitored period produced readable data. Baseline Rhythm * The baseline rhythm was First Degree AV Block + Sinus Bradycardia with heart rates ranged between 43 and 150 beats per minute, with average rate of 58 beats per minute. Normal sinus node function noted. A-V Conduction * No Second Degree AV Block Type II. * No Third Degree AV Block. * No Pauses. Supraventricular Arrhythmia * There were 60,388 Supraventricular Ectopic beats with a burden of 3%. * 3 Supraventricular Tachycardia events - the longest episode was 58.9s on 08/29 04:41, and the fastest episode was 137 BPM on 09/05 14:29. Ventricular Arrhythmia * There were 7,158 Ventricular Ectopic beats with a burden of <1%. * No Ventricular Tachycardia. Atrial Fibrillation * Paroxysmal episodes of atrial fibrillation with 2% burden was noted on this monitoring. While in atrial fibrillation, the minimum heart rate of 52 bpm with an average heart rate of 79 bpm and a maximal rate of 150 bpm. The longest episode of atrial fibrillation lasted for 12 hours 38 minutes. Patient was in rapid ventricular rates for 9% of the time in atrial fibrillation. Patient Triggered Events * 6 patient triggered events with nonspecific symptoms all of which correlated with sinus rhythm with heart rate in the 50s to 70s IMPRESSION: 1. Paroxysmal atrial fibrillation with an average rate of 79 bpm as noted in this monitoring. Longest episode of atrial fibrillation lasted for almost 13 hours. Patient was in rapid ventricular rates for 9% of the time in atrial fibrillation. 2. Brief episodes of SVT likely atrial tachycardia lasting up to 1 minute was noted in this monitoring. 3. Occasional PACs with 3% burden noted. 4. No other significant atrial or ventricular arrhythmias were noted in this monitoring. Signed by: Torres Winter MD us Torres Winter MD CV VASCULAR ORDERABLES Fi nal Result [facility] * LIPID PANEL (08/25/2016 11:42 AM RAILWAY PATROL OFFICER) CHOLESTEROL 109 HDL 44 TRIGLYCERIDES 93 NON HDL CHOLESTEROL 64 CHOL/HDL RATIO 1.0 LDL (CALCULATED) 46 VLDL CALCULATION n/a 08/25/2016 11:4 2 AM RAILWAY PATROL OFFICER Isamar Melara MD LABORATORY Final Result from Last 3 Months or Most Recently Relevant to Health Maintenance Insurance [employer]ET[employer] Advance Directives * Full Code (Latest Code Status on File) Date Activated Date Inactivated Comments 10/08/2023 12:51 PM 10/08/2023 4:[address] Justice Relationship Specialty Start Date End Date Robbie Davis MD [address] [place] [phone] PCP - General INTERNAL MEDICINE 05/20/16 Verena Lara ANP- [facility] [place] [address] Nurse Practitioner NURSE PRACTITIONER ADULT HEALTH 10/28/23 Torres Winter MD [address] [place] [address] Consulting Physician CLINICAL CARDIAC ELECTROPHYSIOLOGY 05/13/24 Charity Banda PA-C [address] [place], [place] [address] Referring Physician PHYSICIAN CRUCIBLE FURNACE TENDER 06/03/24 Carolina Herzog MD [address] [place], [place] [address] Consulting Physician CARDIOVASCULAR DISEASE 07/20/24
--- OUTSIDE RECORDS SUMMARY | 2024-11-12 07:10 | XMS_ITS | Encounter Summary ---
Author Organization [facility] Address [facility] [place] [address] Care Team Providers Care E Business Specialist Name Role Phone Robbie Davis MD Primary Care Provider [phone] Verena Lara ANP-BC Unavailable [phone] Torres Guerra MD Unavailable [phone] Charity Banda PA-C Unavailable [phone] Carolina Herzog MD Unavailable Encounter Details Date Type Department Care Team (Late st Contact Info) Description 08/01/2024 Quikly Message Enc [facility] [address] [place] [phone] Shakila [facility] Provider Results Social History Tobacco Use Types Packs/Day Years Used Date Smoking Tobacco: Former Smokeless Tobacco: Former Chew Quit: 08/25/2001 Comments:quit in 2012 - smok ed off and on for 42 years, 1/2 PPD on average Alcohol Use Standard Drinks/Week Comments Yes 0 (1 standard drink = 0.6 oz pur e alcohol) Occasionally during weekends. 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 Not on file Not on file No t on file Not on file Not on file Not on file Not on file documented as of this encounter Plan of Treatment Upcoming Encounters Date Type Department Care Team (Late st Contact Info) Description 11/24/2024 7:00 AM CDT Appointment [facility] [employer] [address] [place] [address] Torres Guerra MD [address] [place], [place] [address] 01/02/2025 10:00 AM CDT Office Visit [facility] [address] [place] [address] Carolina Herzog MD [address] [place] [address] 03/01/2025 1:15 PM CDT Office Visit [facility] [place] [address] [place] [address] Torres Guerra MD [address] [place], [place] [phone] documented as of this encounter Visit Diagnoses Not on filedocumented in this encounter Care Teams E Business Specialist Relationship Specialty Start Date End Date Robbie Davis MD [address] [place] [address] PCP - General INTERNAL MEDICINE 05/20/16 Verena Lara, ANP- [address] [place] [id number] Nurse Practitioner NURSE PRACTITIONER ADULT HEALTH 10/28/23 Torres Guerra MD [address] [place] [address] Consulting Physician CLINICAL CARDIAC ELECTROPHYSIOLOGY 05/13/24 Charity Banda PA-C [address] [place] [address] Referring Physician PHYSICIAN SECURITIES TELLER 06/03/24 Carolina Herzog MD [address] [place] [address] Consulting Physician CARDIOVASCULAR DISEASE 07/20/24 documented as of this encounter
--- OUTSIDE RECORDS SUMMARY | 2024-11-12 07:10 | XMS_ITS | Encounter Summary ---
Author Organization [facility] Address [address] [place] [address] Care Team Providers Care Prime Minister Name Role Phone David Bergman MD Unavailable [phone] Alona Miles MD Unavailable [phone] Srinivasa Wilburn DO Unavailable [phone] Robbie Davis MD Primary Care Provider [phone] Encounter Details Date Type Department Care Team (Late st Contact Info) Description 01/16/2015 Therapy Visit [facility] [address] [facility] [address] [place] [address] [place] [id number] [address] Social History Tobacco Use Types Packs/Day Years Used Date Smoking Tobacco: Former Cigarettes 2 15 0 07/06/1995 - 07/06/2010 Smokeless Tobacco: Former Chew Alcohol Use Standard Drinks/Week Comments Yes 2.5 (1 standard drink = 0.6 oz p ure alcohol) Sex and Gender Information Value Date Recorded Sex Assigned at Not on file Legal Sex Male 5:24 AM PHARMACY INFORMATICS SPECIALIST Gender Identity Not on file Sexual Orientation Not on file documented as of this encounter Functional Status * Is person deaf or have serious hearing difficulty? Answer Date of Assessment Author No 10/20/2014 7:05 AM Vanegas RN * Is person blind or have serious difficulty seeing? Answer Date of Assessment Author No 10/20/2014 7:05 AM CDT Sherman, De jeffery L., RN * Does person have serious difficulty walking/climbing stairs? Answer Date of Assessment Author No 10/20/2014 7:05 AM Vanegas RN * Does person have difficulty dressing/bathing? Answer Date of Assessment Author No 10/20/2014 7:05 AM Vanegas RN * Does person have difficulty doing errands alone? Answer Date of Assessment Author No 10/20/2014 7:05 AM Vanegas RN documented as of this encounter Mental Status * Does person have difficulty concentrating/remembering/making decisions? Answer Entry Date Author No 10/20/2014 7:05 AM Vanegas RN documented in this encounter Plan of Treatment Not on file documented as of this encounter Visit Diagnoses Not on filedocumented in this encounter Care Teams Prime Minister Relationship Specialty Start Date End Date Robbie Davis MD [address] [place], [place] [phone] PCP - General Internal Medicine 04/07/24 [place] [address] [place] [address] Orthopedic Surgery 01/10/13 [place] [address] [place] [address] Orthopedic Surgery 08/21/14 [place] [address] [place] [address] Orthopedic Surgery 01/03/16 documented as of this encounter
--- OUTSIDE RECORDS SUMMARY | 2024-11-12 07:10 | XMS_ITS | Clinical Summary ---
Author Organization [facility] Address [address] [facility] [address] Pereran: Epic Prelude ADT ABHIJEET MEEHAN [address] Care Team Providers Care Habitat Conservation Planner Name Role Phone Unavailable Primary Care Provider Unavailabl e Social History Tobacco Use Types Packs/Day Years Used Date Smoking Tobacco: Never Assessed Sex and Gender Information Value Date Recorded Sex Assigned at Not on file Legal Sex Male 3:26 AM HEMATOLOGIST Gender Identity Not on file Sexual Orientation Not on file Plan of Treatment Health Maintenance Due Date Last Done Comments DTAP/TDAP/TD VACCINES (1 - Tdap) 1968 COLORECTAL SCREENING 1994 Colorectal Cancer Screening 1994 FIT-DNA Q 3 years 1994 FIT/FOBT Q 1 year 1994 Flex Sig/CT Colonography Q 5 years 1994 PNEUMOCOCCAL VACCINE 50+ YEARS (1 of 1 - PCV) 03/08/19 99 ZOSTER VACCINE (1 of 2) 1999 INFLUENZA VACCINE (#1) 2024 RSV VACCINE (60+ or ) (1 - 1-dose 75+ series) 2024
--- OUTSIDE RECORDS SUMMARY | 2024-11-12 07:10 | XMS_ITS | Clinical Summary ---
Author Organization [facility] Address [address] [facility] [place] [address] Care Team Providers Care Visual Basic Programmer Name Role Phone David Bergman MD Unavailable [phone] Alona Miles MD Unavailable [phone] Srinivasa Wilburn DO Unavailable [phone] Robbie Davis MD Primary Care Provider [phone] Source Comments [facility] [employer],non-owned Affiliates and Associated Physician Practices is amultiple site organization consisting of ambulatory clinics and hospital sitesin [place], [place], [place] and [place]. This disclosure is being madepursuant to the Care Everywhere program and may not contain all information available regarding this patient. Last updated 18.[facility] [employer] Allergies No known active allergies Medications * Be aware that medications may not be up to date on this document. Alwaysverify current medications with the patient. lisinopril (PRINIVIL; ZESTRIL) 10 MG tablet Take 10 mg by mouth 2 times daily. Active terazosin (HYTRIN) 5 MG capsule Take 5 mg by mouth at bedtime. Active simvastatin (ZOCOR) 20 MG tablet Take 20 mg by mouth at bedtime. Active multivitamin daily (THERAGRAN) tablet Take 1 Tab by mouth daily with food. Active flecainide (TAMBOCOR) 150 MG tablet Take 150 mg by mouth 2 times daily. Active celecoxib (CELEBREX) 200 MG capsule Take 1 Cap by mouth 2 times daily 60 Cap 0 11/26/2015 Active aspirin (ASPIRIN) 81 MG tablet Take 81 mg by mouth once daily Active diclofenac sodium (VOLTAREN) 1 % gelIndications: Status post total left knee replacement,Pes anserinus bursitis of left knee Apply 4 g to affected area 4 times daily Apply to affected knee 5 Tube 3 05/05/2016 Active Xarelto 20 MG tablet 03/14/2024 Active pantoprazole EC (Protonix) 40 MG tablet 03/13/2024 Active albuterol HFA (Proventil; Ventolin; Proair) 108 (90 Base) MCG/ACT inhaler 2 (two) puffs every 4 hours as needed 03/04/2024 Active Active Problems Problem Noted Date Diagnosed Date Pes anserinus bursitis of left knee 05/05/2016 Status post total left knee replacement 09/18/19 16 Status post revision of total knee 07/10/2015 Knee joint replacement by other means 03/14/2013 Essential hypertension 01/10/2013 Overview (04/05/2015): Heart disease 01/10/2013 Atrial flutter 01/10/2013 Osteoarthrosis involving lower leg 01/10/2013 Overview (09/29/2015): 2015 IMO Updt Encounters Date Type Department Care Team Description 10/06/2024 2:00 PM CDT Office Visit [facility] [address] [place] [address], [facility] [address] [place] [phone] David Bergman MD Status post bilateral knee replacements (Primary Dx) 10/06/2024 1:55 PM CDT Ancillary Procedure [facility] - Radiology [address] [place] [phone] David Bergman MD Status post bilateral knee replacements from Last 3 Months Social History Tobacco Use Types Packs/Day Years Used Date Smoking Tobacco: Former Cigarettes 2 15 0 07/06/1995 - 07/06/2010 Smokeless Tobacco: Former Chew Alcohol Use Standard Drinks/Week Comments Yes 2.5 (1 standard drink = 0.6 oz p ure alcohol) PHQ-2 Answer Date Recorded Patient Health Questionnaire-2 Score 0 04/07/2024 Sex and Gender Information Value Date Recorded Sex Assigned at Not on file Legal Sex Male 5:24 AM 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 Gender Identity Not on file Sexual Orientation Not on file Last Filed Vital Signs Vital Sign Reading Time Taken Comments Blood Pressure 155/74 04/24/2016 11:55 AM CDT Pulse 59 04/24/2016 11:55 AM CDT Temperature 36.7 C (98.1 F) 08/25/2015 7:22 AM 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 Respiratory Rate 16 04/24/2016 11:55 AM CDT Oxygen Saturation 99% 04/24/2016 11:55 AM CDT Inhaled Oxygen Concentration - - Weight 127 kg (280 lb) 04/07/2024 4:17 PM CDT Height 182.9 cm (6') 04/07/2024 4:17 PM CDT Body Mass Index 37.97 04/07/2024 4:17 PM CDT Plan of Treatment Health Maintenance Due Date Last Done Comments COLOGUARD (AGES 45-75) - COL ON CA SCREENING 1949 COLON MONITORING 1949 COLONOSCOPY - COLON CA SCREENING 1949 CT COLONOGRAPHY - COLON CA SCREENING 1949 Colorectal Cancer Screening 1949 FIT - COLON CA SCREENING 1949 FLEX SIG - COLON CA SCREENING 1949 HEPATITIS C SCREENING 03/04/1967 DTAP/TDAP/TD VACCINES (1 - Tdap) 1968 PNEUMOCOCCAL VACCINE 50+ (1 of 1 - PCV) 1999 ZOSTER VACCINE (1 of 2) 1999 COVID-19 VACCINE ( - 2023-2 5 season) 2024 Respiratory Syncytial Virus (RSV) Vaccine Pt: or over 60 yrs (1 - 1-dose 75+ series) 2024 DEPRESSION SCREENING 07/06/2024 04/07/2024 MEDICARE AWV CALENDAR YEAR 2024 INFLUENZA VACCINE (Season Ended) 2025 04/05/2017, 02/03/2017, 04/05/2016 HEPATITIS B VACCINE Aged Out No longe r eligible based on patient's age to complete this topic HIB VACCINE Aged Out No longer eligi ble based on patient's age to complete this topic HPV VACCINE Aged Out No longer eligi ble based on patient's age to complete this topic MENINGOCOCCAL (Group B) VACCINE SHARED DECISION-MAKING Aged Out No longer eligible based on patient's age to complete this topic MENINGOCOCCAL GROUPS A/C/Y/W VACCINE Aged Out No longer eligible b ased on patient's age to complete this topic Medical Devices Implanted Type Area Pastoral Worker Device Identifier Shelf Expiration Date Model / Serial / Lot Warren Bone Elmo Hv Implanted:Qty: 1 on 02/21/2013 by David Bergman MD at [facility] Right: Knee [employer] 09/01/2014 [id number] / / [id number] Butn Pat Arcom Wire Polyeth Med 34 X 9mm Implanted:Qty: 1 on 02/21/2013 by David Bergman MD at [facility] Right: Knee [employer] 01/02/2018 [id number] / / [id number] Ty Tibial I Beam Fix Bar 79mm Implanted:Qty: 1 on 02/21/2013 by David Bergman MD at [facility] Right: Knee [employer] 01/02/2023 [id number] / / [id number] Vanguard Cr Femoral 70mm Right Implanted:Qty: 1 on 02/21/2013 by David Bergman MD at [facility] Right: Knee 01/02/2023 [id number] / / [id number] Vanguard Dcm Tibial Bearing 10mm X 79mm Implanted:Qty: 1 on 02/21/2013 by David Bergman MD at [facility] Right: Knee 01/02/2018 [id number] / / [id number] Swivel Lock Implanted:Qty: 1 on 10/20/2014 by Alona Miles MD at [facility] Left: Shoulder [employer] 04/04/2016 AR-2324BCC -2 / / [id number] Swivel Lock Implanted:Qty: 1 on 10/20/2014 by Alona Miles MD at [facility] Left: Shoulder [employer] 06/04/2016 AR-2324BCC T / / [id number] Warren Bone Elmo Hv Implanted:Qty: 1 on 06/13/2015 by David Bermgan MD at [facility] Right: Knee [employer] [facility] 01/02/2017 [id number] / / [id number] Compon Pat Std Series A 31mm X 8.0mm Implanted:Qty: 1 on 06/13/2015 by David Bergman MD at [facility] Right: Knee [employer] 03/27/2020 [id number] / / [id number] Warren Bone Elmo Hv Implanted:Qty: 1 on 08/23/2015 by David Bergman MD at [facility] Left: Knee [facility] 02/02/2017 [id number] / / [id number] Ty Tibial I Beam Fix Bar 79mm Implanted:Qty: 1 on 08/23/2015 by David Bergman MD at [facility] Left: Knee [employer] 07/11/2027 [id number] / / [id number] Butn Pat Arcom Wire Polyeth Med 34 X 9mm Implanted:Qty: 1 on 08/23/2015 by David Bergman MD at [facility] Left: Knee [employer] 05/16/2020 [id number] / / [id number] Comp Fem Lt 72.5mm Implanted:Qty: 1 on 08/23/2015 by David Bergman MD at [facility] Left: Knee [employer] 05/24/2025 [id number] / / [id number] Implt Tibial Bear Ant Stab 12mm X 79mm Implanted:Qty: 1 on 08/23/2015 by David Bergman MD at [facility] Left: Knee [employer] 09/24/2019 [id number] / / [id number] Procedures Procedure Name Priority Date/Time Associated Diagnosis Comments XR KNEE BILAT 3VW Routine 10/06/2024 1:5 5 PM CDT Status post bilateral knee replacements from Last 3 Months Results * XR Knee Bilat 3Vw (10/06/2024 1:55 PM CDT) Narrative [facility] [address] - 10/06/2024 1:55 PM CDT Please see progress note in Epic for results. us David Bergman MD DIAGNOSTIC IMAGING ORDERABLES Final Result [facility] [address] from Last 3 Months Insurance AETNA AETNA MEDICARE ADV [facility] MANAGED MEDICARE ADV Advance Directives * Full Code (Latest Code Status on File) Date Activated Date Inactivated Comments 08/23/2015 1:04 PM 08/25/2015 11:53 AM * Full Code Date Activated Date Inactivated Comments 06/13/2015 2:10 PM 06/14/2015 4:22 PM * FULL RESUSCITATION Date Activated Date Inactivated Comments 02/21/2013 12:36 PM 02/24/2013 12:44 PM Care Teams Visual Basic Programmer Relationship Specialty Start Date End Date Robbie Davis MD [address] [place] [address] PCP - General Internal Medicine 04/07/24 [place] [address] [address] [place] [address] [phone] Orthopedic Surgery 01/10/13 [place] [address] [address] [place] [address] Orthopedic Surgery 08/21/14 [place] [address] [address] [place] [address] Orthopedic Surgery 01/03/16
--- OUTSIDE RECORDS SUMMARY | 2024-11-12 07:10 | XMS_ITS | Encounter Summary ---
Author Organization [facility] Address [facility] [place] [address] Care Team Providers Care Volleyball Referee Name Role Phone Robbie Davis MD Primary Care Provider [phone] Cas Merino MD Unavailable [phone] Rick Solitario MD Unavailable [phone] Holli Seaman MD Unavailable [phone] Verena Lara ANP-BC Unavailable [phone] Torres Guerra MD Unavailable [phone] Charity BandaC Unavailable [phone] Carolina Herzog MD Unavailable Encounter Details Date Type Department Care Team (Late st Contact Info) Description 07/30/2015 Abstract [facility] [address] [place] [address] Isamar Melara MD [address] [place] [address] Social History Tobacco Use Types Packs/Day Years Used Date Smoking Tobacco: Former Smokeless Tobacco: Former Chew Alcohol Use Standard Drinks/Week Comments Yes 0 (1 standard drink = 0.6 oz pur e alcohol) Occasionally during weekends. 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 Not on file Not on file No t on file documented as of this encounter Plan of Treatment Upcoming Encounters Date Type Department Care Team (Late st Contact Info) Description 11/24/2024 7:00 AM CDT Appointment [facility] Inspector Cold Working [address] [place] [address] Torres Guerra MD [address] [place] [address] 01/02/2025 10:00 AM CDT Office Visit [facility] [address] [place] [address] Carolina Herzog MD [address] [place], [place] [address] 03/01/2025 1:15 PM CDT Office Visit [facility] [place] [address] [place] [address] Torres Guerra MD [address] [place] [address] documented as of this encounter Visit Diagnoses Not on filedocumented in this encounter Care Teams Volleyball Referee Relationship Specialty Start Date End Date Robbie Davis MD [address] [place] [phone] PCP - General INTERNAL MEDICINE 05/20/16 Cas Merino MD [address] [facility] [address] [place] [address] EP [place] CLINICAL CARDIAC ELECTROPHYSIOLOGY 05/20/16 10/27/23 Rick Solitario MD [address] [place] [phone] [place] CARDIOVASCULAR DISEASE 03/03/18 10/27/23 Holli Seaman MD [address] [place] [phone] INTERVENTIONAL CARDIOLOGY 10/28/2307/06 Verena Lara, [facility] [address] [place] [address] Nurse Practitioner NURSE PRACTITIONER ADULT HEALTH 10/28/23 Torres Guerra MD [address] [place] [address] [phone] Consulting Physician CLINICAL CARDIAC ELECTROPHYSIOLOGY 05/13/24 Charity Banda PA-C [address] [place], [place] [address] Referring Physician PHYSICIAN LANGUAGE SPECIALIST 06/03/24 Carolina Herzog MD [address] [place] [address] Consulting Physician CARDIOVASCULAR DISEASE 07/20/24 documented as of this encounter
--- OUTSIDE RECORDS SUMMARY | 2024-11-12 07:10 | XMS_ITS | Referral Summary ---
Author Organization [facility] Address [address] [place] [address] Care Team Providers Care Tunnel Form Placing Supervisor Name Role Phone Robbie Davis MD Primary Care Provider [phone] Allergies No known active allergies Medications flecainide (TAMBOCOR) 100 mg tablet 02/09/[address] (PROTONIX) 40 mg EC tablet 02/09/2018 Active XARELTO 20 mg tablet 02/09/2018 Active simvastatin (ZOCOR) 10 mg tablet 01/11/2018 Active terazosin (HYTRIN) 5 mg capsule 02/09/2018 Active celecoxib (CeleBREX) 200 mg capsule Take 1 capsule (200 mg total) by mouth daily Active finasteride (PROSCAR) 5 mg tabletIndicatio ns:Enlarged prostate without lower urinary tract symptoms (luts) Take 1 tablet (5 mg total) by mouth daily 90 tablet 3 09/21/2018 Active metoprolol XL (TOPROL-XL) 25 mg 24 hr tablet 05/20/2019 Act karine telmisartan (MICARDIS) 40 mg tablet 05/20/2019 Active ferrous gluconate 324 mg (37.5 mg of elemental iron) tablet Take by mouth daily Active acjnzsbo-imt-ZP -lycopen-lutein (Centrum Silver Men) 300-600-300 mcg tablet 07/06/2009 Active Active Problems Problem Noted Date Diagnosed Date Essential (primary) hypertension 05/03/2024 Right carpal tunnel syndrome 04/05/2024 Mild CAD 09/08/2022 11/11/2022 Bilateral carpal tunnel syndrome 08/19/2022 Overview (08/19/2022): Added automatically from request for surgery [id number] Thyroid nodule 05/30/2019 Assessment & Plan (05/06/2022 1:28 PM CDT): Discussed with him the natural history of these nodules. He has had his relatively large 3.3 cm right thyroid nodule biopsied which was benign in 09/2019. He has not noticed any growth and no significant growth. Neck US 04/2022 stable: Stable previously biopsied right thyroid nodule. He is clinically euthyroid, TFTs normal 10/2021. Plan follow up neck US in 2-3 yrs , earlier if develop obstructive symptoms Assessment & Plan (09/13/2019 4:26 PM CDT): We reviewed the ultrasound images with the patient. The Right thyroid nodule meet the DAVID guidelines for biopsy/fine-needle aspiration. Prior FNA was nondiagnostic. Will send for genetics. Patient is a clinically and biochemically euthyroid We discussed the procedure of fine-needle aspiration, risk and benefit, patient is willing to proceed Discussed potential results including benign, malignant, AUS/FLUS, and suspicious I handed the patient an education brochure detailing thyroid nodule and fine- needle aspiration Discussed natural history and course of follow-up of thyroid nodules Plan for FNA today. See procedure note. Assessment & Plan (05/30/2019 8:32 AM DIRECTOR OF BUSINESS APPLICATIONS): We reviewed the ultrasound images with the patient. The Right thyroid nodule meet the DAVID guidelines for biopsy/fine-needle aspiration Patient is a clinically and biochemically euthyroid We discussed the procedure of fine-needle aspiration, risk and benefit, patient is willing to proceed Discussed potential results including benign, malignant, AUS/FLUS, and suspicious I handed the patient an education brochure detailing thyroid nodule and fine- needle aspiration Discussed natural history and course of follow-up of thyroid nodules Will plan RTC in 2 weeks for FNA after holding blood thinners for 2-3 days Enlarged prostate without lo wer urinary tract symptoms (luts) 02/15/2018 Overview (02/15/2018): Enlarged prostate - (Added by DESTINI Conv) Spondylolisthesis of lumbar region 02/25/2017 Spinal stenosis of lumbar region 08/06/2016 Immunizations Immunization Administration Dates Next Due Influenza, Trivalent, Preservative Free, Intramu scular 04/05/2017,04/05/2016 Influenza, Unspecified 02/03/2017 Social History Tobacco Use Types Packs/Day Years Used Date Smoking Tobacco: Former Smokeless Tobacco: Former Tobacco Cessation:Counseling Given: Not Answered Alcohol Use Standard Drinks/Week Comments Yes 0 (1 standard drink = 0.6 oz pur e alcohol) social drinker AUDIT-C Answer Date Recorded Q1: How often do you have a drink containing alc ohol? 2-3 times a week 04/20/2024 Q2: How many drinks containi ng alcohol do you have on a typical day when you are drinking? 3 or 4 04/20/2024 Frequency of Binge Drinking Not on file 04/05 Personal Safety Answer Date Recorded Have you ever been in or are you currently in a harmful physical or emotional relationship or is someone making you feel afraid or unsafe? Denies 04/20/2024 Sex and Gender Information Value Date Recorded Sex Assigned at Not on file Legal Sex Male 8:03 AM DIRECTOR OF BUSINESS APPLICATIONS Gender Identity Male 04/29/2022 10:52 AM CDT Sexual Orientation Straight 04/29/2022 10 :52 AM CDT Occupation Industry Job Start Date Job End Date retired Not on file Not on file Not on file Last Filed Vital Signs Vital Sign Reading Time Taken Comments Blood Pressure 154/63 04/20/2024 9:00 AM CDT Pulse 51 04/20/2024 9:00 AM CDT Temperature 36 C (96.8 F) 04/20/2024 8:52 AM CDT Respiratory Rate 27 04/20/2024 9:00 AM CDT Oxygen Saturation 96% 04/20/2024 9:00 AM CDT Inhaled Oxygen Concentration - - Weight 131.5 kg (290 lb) 04/20/2024 6:35 AM CDT Height 180.3 cm (5' 11 ) 04/20/2024 6:35 AM CDT Body Mass Index 40.45 04/20/2024 6:35 AM CDT Plan of Treatment Not on file Insurance [facility] Address: [facility] [id number] [place] [address] UHC MEDICARE ADVANTAGE [facility] MEDICARE Address: [facility] [address] [place] [address] [facility] MEDICARE [facility] Address: [facility] [address] [place] [address] Care Teams Tunnel Form Placing Supervisor Relationship Specialty Start Date End Date Robbie Davis MD PCP - General 12/04/16
--- OUTSIDE RECORDS SUMMARY | 2024-11-12 07:10 | XMS_ITS | Encounter Summary ---
Author Organization [facility] Address 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
--- OUTSIDE RECORDS SUMMARY | 2024-11-12 07:10 | XMS_ITS | Encounter Summary ---
Author Organization [facility] Address [facility] [place] [address] Care Team Providers Care Computer Animator Name Role Phone Robbie Davis MD Primary Care Provider [phone] Cas Merino MD Unavailable [phone] Rick Solitario MD Unavailable [phone] Holli Seaman MD Unavailable [phone] Verena Lara ANP-BC Unavailable [phone] Torres Guerra MD Unavailable [phone] Charity BandaC Unavailable [phone] Carolina Herzog MD Unavailable Encounter Details Date Type Department Care Team (Late st Contact Info) Description 10/02/2023 Hospital Orders Only [facility] Fire Behavior Analyst Pre/Post [address] [place] [address] Rick Solitario MD [address] [place] [address] Social History Tobacco Use Types Packs/Day Years [...] Sex Assigned at Male 07/20/2024 12:17 PM OPERATING ROOM COORDINATOR Legal Sex Male 11:01 PM CDT Gender Identity Not on file Sexual Orientation Not on file 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 Not on file No t on file Not on file Not on file Not on file Not on file documented as of this encounter Plan of Treatment Upcoming Encounters Date Type Department Care Team (Late st Contact Info) Description 11/24/2024 7:00 AM CDT Appointment [facility] Fire Behavior Analyst [address] [place] [address] Torres Guerra MD [address] [place], [place] [address] 01/02/2025 10:00 AM CDT Office Visit [facility] [place] [address] [place] [address] Carolina Herzog MD [address] [place], [place] [address] 03/01/2025 1:15 PM CDT Office Visit [facility] [place] [address] [place] [address] Torres Guerra MD [address] [place], [place] [address] documented as of this encounter Visit Diagnoses Not on filedocumented in this encounter Care Teams Computer Animator Relationship Specialty Start Date End Date Robbie Davis MD [address] [place] [address] PCP - General INTERNAL MEDICINE 05/20/16 Cas Merino MD [address] [place] [place] [address] [place] [phone] EP End Trimmer CLINICAL CARDIAC ELECTROPHYSIOLOGY 05/20/16 10/27/23 Rick Solitario MD [address] [place] [phone] [place] [facility] CARDIOVASCULAR DISEASE 03/03/18 10/27/23 Holli Seaman MD [address] [place] [address] [phone] INTERVENTIONAL CARDIOLOGY 10/28/2307/06 Verena Lara, [facility] [address] [place] [address] Nurse Practitioner NURSE PRACTITIONER ADULT HEALTH 10/28/23 Torres Guerra MD [address] [place] [address] Consulting Physician CLINICAL CARDIAC ELECTROPHYSIOLOGY 05/13/24 Charity Banda PA-C [address] [place] [address] [phone] Referring Physician PHYSICIAN HIGH [employer]CHO[employer] FOREIGN LANGUAGE TEACHER 06/03/24 Carolina Herzog MD [address] [place], [place] [phone] Consulting Physician CARDIOVASCULAR DISEASE 07/20/24 documented as of this encounter
--- OUTSIDE RECORDS SUMMARY | 2024-11-12 07:10 | XMS_ITS | Encounter Summary ---
Author Organization [facility] Address [address] [facility] [place] [address] Care Team Providers Care Auto Bumper Straightener Name Role Phone David Bergman MD Unavailable [phone] Alona Miles MD Unavailable [phone] Srinivasa Wilburn DO Unavailable [phone] Robbie Davis MD Primary Care Provider [phone] Encounter Details Date Type Department Care Team (Late st Contact Info) Description 09/13/2015 Therapy Visit [facility] Orthopedics [address] [address] [place] [address] [address] Social History Tobacco Use Types Packs/Day Years Used Date Smoking Tobacco: Former Cigarettes 2 15 0 07/06/1995 - 07/06/2010 Smokeless Tobacco: Former Chew Alcohol Use Standard Drinks/Week Comments Yes 2.5 (1 standard drink = 0.6 oz p ure alcohol) Sex and Gender Information Value Date Recorded Sex Assigned at Not on file Legal Sex Male 5:24 AM PRODUCT MARKETING COORDINATOR Gender Identity Not on file Sexual Orientation [...] 9:19 AM Ele Kaba ma, RN documented as of this encounter Mental Status * Does person have difficulty concentrating/remembering/making decisions? Answer Entry Date Author No 08/25/2015 9:19 AM Ele Kaba ma, RN documented in this encounter Plan of Treatment Not on file documented as of this encounter Visit Diagnoses Not on filedocumented in this encounter Care Teams Auto Bumper Straightener Relationship Specialty Start Date End Date Robbie Davis MD [address] [place] [address] PCP - General Internal Medicine 04/07/24 [place] [address] [address] Orthopedic Surgery 01/10/13 [place] [address] [address] [place] [address] Orthopedic Surgery 08/21/14 [place] [address] [address] [address] Orthopedic Surgery 01/03/16 documented as of this encounter
--- OUTSIDE RECORDS SUMMARY | 2024-11-12 07:10 | XMS_ITS | Encounter Summary ---
Author Organization [facility] Address [address] [place] [address] Care Team Providers Care Veneer Glue Jointer Feedback Name Role Phone David Bergman MD Unavailable [phone] Alona Miles MD Unavailable [phone] Srinivasa Wilburn DO Unavailable [phone] Robbie Davis MD Primary Care Provider [phone] Encounter Details Date Type Department Care Team (Late st Contact Info) Description 04/20/2013 Therapy Visit [facility] [id number] [address] [place] [address] [address] Social History Tobacco Use Types Packs/Day Years Used Date Smoking Tobacco: Former Cigarettes 2 15 0 07/06/1995 - 07/06/2010 Smokeless Tobacco: Former Chew Alcohol Use Standard Drinks/Week Comments Yes 2.5 (1 standard drink = 0.6 oz p ure alcohol) Sex and Gender Information Value Date Recorded Sex Assigned at Not on file Legal Sex Male 5:24 AM REFRACTORY GRINDER OPERATOR Gender Identity Not on file Sexual Orientation Not on file documented as of this encounter Plan of Treatment Not on file documented as of this encounter Visit Diagnoses Not on filedocumented in this encounter Care Teams Veneer Glue Jointer Feedback Relationship Specialty Start Date End Date Robbie Davis MD [address] [place] [address] PCP - General Internal Medicine 04/07/24 [place] [address] [place] [address] Orthopedic Surgery 01/10/13 [place] [address] [place] [address] Orthopedic Surgery 08/21/14 [place] [address] [place] [address] Orthopedic Surgery 01/03/16 documented as of this encounter
--- OUTSIDE RECORDS SUMMARY | 2024-11-12 07:10 | XMS_ITS | Encounter Summary ---
Author Organization [facility] Address [facility] [place] [address] Care Team Providers Care Floor Attendant Name Role Phone Robbie Davis MD Primary Care Provider [phone] Cas Merino MD Unavailable [phone] Rick Solitario MD Unavailable [phone] Holli Seaman MD Unavailable [phone] Verena Lara ANP-BC Unavailable [phone] Torres Guerra MD Unavailable [phone] Charity BandaC Unavailable [phone] Carolina Herzog MD Unavailable Encounter Details Date Type Department Care Team (Late st Contact Info) Description 06/23/2016 Abstract [facility] [address] [place] [address] Isamar Melara MD [address] [place] [address] Social History Tobacco Use Types Packs/Day Years Used Date Smoking Tobacco: Former Smokeless Tobacco: Former Chew Alcohol Use Standard Drinks/Week Comments Yes 0 (1 standard drink = 0.6 oz pur e alcohol) Occasionally during weekends. 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 Not on file Not on file No t on file documented as of this encounter Plan of Treatment Upcoming Encounters Date Type Department Care Team (Late st Contact Info) Description 11/24/2024 7:00 AM CDT Appointment [facility] Construction Project Coordinator [address] [place] [address] Torres Guerra MD [address] [place] [address] 01/02/2025 10:00 AM CDT Office Visit [facility] [address] [place] [address] Carolina Herzog MD [address] [place], [place] [id number] 03/01/2025 1:15 PM CDT Office Visit [facility] [place] [address] [place] [address] Torres Guerra MD [address] [place] [address] documented as of this encounter Visit Diagnoses Not on filedocumented in this encounter Care Teams Floor Attendant Relationship Specialty Start Date End Date Robbie Davis MD [address] [place] [phone] PCP - General INTERNAL MEDICINE 05/20/16 Cas Merino MD [address] [facility] [address] [place] [address] EP Cardiac Rn CLINICAL CARDIAC ELECTROPHYSIOLOGY 05/20/16 10/27/23 Rick Solitario MD [address] [place] [phone] [facility] CARDIOVASCULAR DISEASE 03/03/18 10/27/23 Holli Seaman MD [address] [place] [phone] INTERVENTIONAL CARDIOLOGY 10/28/2307/06 Verena Lara, [facility] [address] [place] [address] Nurse Practitioner NURSE PRACTITIONER ADULT HEALTH 10/28/23 Torres Guerra MD [address] [place] [id number] Consulting Physician CLINICAL CARDIAC ELECTROPHYSIOLOGY 05/13/24 Charity Banda PA-C [address] [place], [place] [address] Referring Physician PHYSICIAN SCREW MACHINE ADJUSTER AUTOMATIC 06/03/24 Carolina Herzog MD [address] [place] [address] Consulting Physician CARDIOVASCULAR DISEASE 07/20/24 documented as of this encounter
--- OUTSIDE RECORDS SUMMARY | 2024-11-12 07:10 | XMS_ITS | Clinical Summary ---
Author Organization [facility] Address [address] [place] [address] Care Team Providers Care Program Director Cable Television Name Role Phone Robbie Davis MD Primary Care Provider Allergies No known active allergies Medications flecainide [...] iron) tablet Take by mouth daily Active rggdikcf-mez-YL -lycopen-lutein (Centrum Silver Men) 300-600-300 mcg tablet 07/06/2009 Active Active Problems Problem Noted Date Diagnosed Date Essential (primary) hypertension 05/03/2024 Right carpal tunnel syndrome 04/05/2024 Mild CAD 09/08/2022 11/11/2022 Bilateral carpal tunnel syndrome 08/19/2022 Overview (08/19/2022): Added automatically from request for surgery [id number] Thyroid nodule 05/30/2019 Assessment & Plan (05/06/2022 [...] note. 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): We reviewed the ultrasound images with the [...] Overview (02/15/2018): Enlarged prostate - (Added by TW Conv) Spondylolisthesis of lumbar region 02/25/2017 Spinal stenosis of lumbar region 08/06/2016 Immunizations Immunization Administration Dates Next Due Influenza, Trivalent, Preservative Free, Intramu scular 04/05/2017,04/05/2016 Influenza, Unspecified 02/03/2017 Surgical History Surgery Date Site/Laterality Comments RECTAL SURGERY Rectal Surgery Repair Of Perirectal Fistula - 1991 (Added by TW Conv) KNEE SURGERY Knee Surgery - 1999 (Added by TW Conv) INGUINAL HERNIA REPAIR Inguinal Hernia Repair - 1991 (Added by TW Conv) Medical History Medical History Date Comments Gout Gout - (Added by TW Conv) Personal history of other di seases of the circulatory system History of hypertension - (A dded by TW Conv) Other specified cardiac arrhythmias Fluttering heart - (Added by TW Conv) Personal history of other di seases of the musculoskeletal system and connective tissue History of spinal stenosis - (Added by TW Conv) Enlarged prostate without lo wer urinary tract symptoms (luts) Enlarged prostate - (Added b y TW Conv) Atrial fibrillation (HCC) Diverticulitis of colon Osteoarthritis Family History Medical History Relation Name Comments Hypertension Father Family history of hypertension - (Added by TW Conv) Intracerebral hemorrhage Father Fam katharine history of cerebral hemorrhage - (Added by TW Conv) Atrial fibrillation Mother Family h istory of atrial fibrillation - (Added by TW Conv) Cancer Other 1 Cancer - (Added by TW Conv) Stroke Other 2 Stroke Syndrome - (Added by TW Conv) Heart disease Other 3 Heart Disease - (Added by TW Conv) Relation Name Status Comments Father Mother Other 1 Other 2 Other 3 Social History Tobacco Use Types Packs/Day Years [...] on file Legal Sex Male 8:03 AM PRODUCTION ASSEMBLY SUPERVISOR Gender Identity Male 04/29/2022 10:52 AM CDT Sexual Orientation Straight 04/29/2022 10 :52 AM CDT Occupation Industry Job Start Date Job End Date retired Not on file Not on file Not on file Obstetrics History Last Filed Vital Signs Vital Sign Reading [...] 04/20/2024 6:35 AM CDT Plan of Treatment Health Maintenance Due Date Last Done Comments Colon Cancer Screening-Colonoscopy 1950 Depression Screening 1950 Hepatitis C Screening 1949 Hepatitis B Screening 1967 Abdominal Aortic Aneurysm (A AA) Screen 2014 Well Visit 65+ 2014 Zoster Vaccine (2 of 2) 04/28/2019 03/03/2019 Pneumococcal vaccine 65+ (3 of 3 - PCV20 or PCV21) 08/21/2021 08/21/2016, 06/02/2012 DTaP/Tdap/Td Vaccine (2 - Td or Tdap) 07/22/2022 07/22/2012 Covid-19 Vaccine (6 - 2023-2 5 season) 2024 03/13/2022, 10/08/2021, 04/26/2021, Additional history exists Influenza Vaccine (#1) 2024 3, 03/13/2022, 03/17/2021, Additional history exists Fall Risk Assessment 04/20/2025 04/20/2024 Insurance [facility] MEDICARE [facility] MEDIC[facility] Address: [facility] [address] [place] [address] UHC MEDICARE [facility] Address: [facility] [address] [place] [address] [facility] MEDICARE [facility] MEDICARE Address: [facility] [id number] [place] [address] Care Teams Program Director Cable Television Relationship Specialty Start Date End Date Robbie Davis MD PCP - General 12/04/16
[2024-11-12 07:21] LABS: Hematocrit 37.5 % (37.0-46.0); Hemoglobin 12.5 g/dL (12.4-15.3); Mean Corpuscular HGB Conc 33.3 g/dL (32-36); Mean Corpuscular Hemoglobin 30.3 pg (27.0-31.0); Mean Platelet Volume 9.6 fl (8.7-11.0); Platelet Count Result 206 K/mm3 (150-420); Red Blood Count 4.12 M/mm3 (4.70-6.10); Red Cell Distribution Width 13.1 % (11.6-14.4); White Blood Count 3.9 K/mm3 (4.8-10.8)
[2024-11-12 07:39] LABS: Band Neutrophils Percent 0 % (0-6); Eosinophils Absolute Manual 0.03 K/mm3 (0.02-0.50); Eosinophils Percent Manual 1 % (1-6); Lymphocytes Absolute Manual 1.56 K/mm3 (1.1-4.5); Lymphocytes Percent Manual 40 % (18-44); Monocytes Absolute Manual 0.35 K/mm3 (0.1-0.90); Monocytes Percent Manual 9 % (3-9); Neutrophils Absolute Manual 1.95 K/mm3 (1.3-6.7); Neutrophils Percent Manual 50 % (46-73); Platelet Estimate Adequate (Adequate); Total Cells Counted 100
[2024-11-12 07:57] LABS: Alanine Aminotransferase 32 U/L (6-50); Albumin Level 4.1 g/dL (3.5-5.1); Alkaline Phosphatase 86 U/L (38-126); Anion Gap 4 mmol/L (4-12); Aspartate Amino Transferase 33 U/L (17-59); Bilirubin,Total 0.8 mg/dL (0.2-1.3); Blood Urea Nitrogen 14 mg/dL (9-20); Calcium 9.1 mg/dL (8.4-10.2); Carbon Dioxide 25 mmol/L (22-30); Chloride 110 mmol/L (98-107); Estimated Glomerular Filt Rate > 60; Glucose 115 mg/dL (65-110); Osmolality Calculated 289 mOsm/kg (285-295); Potassium 4.3 mmol/L (3.4-5.0); Sodium 139 mmol/L (137-145); Total Protein 6.3 g/dL (6.3-8.2)
== END 2024-11-12 07:04 | disposition home or self-care (01) ==
LOC: CHSLAB 07:07
PROVIDERS: PCP Internal Medicine
DX: I48.0 Paroxysmal atrial fibrillation (principal)
CPT/HCPCS: 36415; 80053; 85025

== ENCOUNTER 2025-04-13 14:42 | Outpatient (RCR) | payer MEDICARE, SELFPAY ==
--- NOTE | 2025-04-13 15:54 | OPREHPOC ---
Outpatient Therapy Plan of Care This is a Multidisciplinary Plan of Care that may contain components documented by all disciplines (PT, OT, and ST.) PT Problem 1 PT Problem #1 Knowledge Deficit PT Goal 1 Goal / Goal Update independent and compliant with HEP Target Visit 4 PT Problem 2 PT Problem #2 Pain PT Goal 1 Goal / Goal Update decrease pain at worst to 3/10 or less in the R shoulder Target Visit 8 PT Problem 3 PT Problem #3 Impaired Strength PT Goal 1 Goal / Goal Update improve bilateral shoulder strength to 5/5 or better overall Target Visit 8 PT Problem 4 PT Problem #4 Impaired Range of Motion PT Goal 1 Goal / Goal Update 150 degrees or better active R shoulder flex 45 degrees or better active R shoulder IR Target Visit 8 PT Problem 5 PT Problem #5 Impaired Functional Mobility PT Goal 1 Goal / Goal Update patient to tolerate sleeping on the R side 4 nights a week or more patient to display 10% or less functional deficits per the quick dash Target Visit 8
--- NOTE | 2025-04-13 15:54 | PTOPEVAL1 ---
Assessment and note entered by JT File, PT Evaluation Information Assessment Status Evaluation ICD-10 Condition Codes (PT) Pain in right shoulder M25.511 Onset 01/03/2025 Subjective Information patient reports he is coming to skilled PT for his R shoulder. he reports he is having a lot of pain with activity. he reports he had injections yesterday. he reports he has difficulty sleeping on the R side due to the pain. he reports the pain luis felipe t times run down the front of the R shoulder. Reported Pain Level Pain Score 3: Self Report Assessment PT Clinical Summary mr. waterman is a pleasant 75 yo man who presents to skilled PT services for evaluation and treatment of R shoulder pain. he presents today with signs and symptoms consistent with R shoulder RTC and biceps tendonitis and R shoulder impingement. continued skilled PT is indicated to address his objective/functional deficits and return to his prior level functional activity performance/quality of life. Plan of Care Interventions Electrical Stimulation,Hot Pack/Cold Pack,Manual Therapy,Neuro Re-education,Patient/Caregiver Education,Therapeutic Activities,Therapeutic Exercise PT Services Indicated Yes Treatment Frequency and 2x weekly for 8 visits Duration These treatments will address the objective and functional deficits as defined above. The patient will be advanced safely and appropriately in order for the patient to progress towards his/her prior level of function. Additional exercises will be introduced and as well as a comprehensive home exercise program upon discharge, if needed, ?to ensure carryover of functional gains achieved in the clinic. This treatment plan has been reviewed and agreement upon by the patient.
--- NOTE | 2025-05-09 09:35 | PTOPDC ---
Assessment and note entered by Dominique Potts DPT Evaluation Information Assessment Status Discharge ICD-10 Condition Codes (PT) Pain in right shoulder M25.511 Onset 01/03/2025 Subjective Information patient reports his shoulder is greatly improved. He reports he is able to sleep without disturbance due to shoulder pain. He reports that he is able to do activities at home with greater ease. He reports that exercises really help to decrease pain Reported Pain Level Pain Score 1: Self Report Assessment PT Clinical Summary Mr. Navarrete attended 8 visits of skilled PT with great improvement. He met goals for strength, ROM and pain during POC. He has been able to return to sleep without disturbance due to R shoulder pain and has improved ability to complete house hold tasks. He is independent with HEP and is appropriate for DC at this time. Plan of Care PT Services Indicated No
== END 2025-05-09 20:00 | disposition home or self-care (01) ==
LOC: CHSPT 14:42
PROVIDERS: PCP Internal Medicine
DX: M25.511 Pain in right shoulder (principal); G89.29 Other chronic pain; M67.911 Unspecified disorder of synovium and tendon, right shoulder
CPT/HCPCS: 97014; 97110; 97161; G0283